=== PATIENT | male | born 1980 | race Caucasian/White ===

== ENCOUNTER 2022-09-08 16:06 | Emergency (ER) | payer OTHER ==
[~2022-09-08] VITALS: Ht 162.6 cm; Wt 68.5 kg
== END 2022-09-08 19:51 | disposition home or self-care (01) ==
LOC: ER 16:06
DX: M25.532 Pain in left wrist (principal); M25.571 Pain in right ankle and joints of right foot; V29.99XA Rider (driver) (passenger) of other motorcycle injured in unspecified traffic accident, initial encounter; Y93.9 Activity, unspecified; Y92.9 Unspecified place or not applicable